=== PATIENT | male | born 1990 | race African-American/Black ===

== ENCOUNTER 2018-11-19 19:59 | Emergency (ER) | payer OTHER ==
[2018-11-19] MEDS ORDERED: ACETAMINOPHEN 325 MG TABLET PO ONE (20:36)
--- NOTE | 2018-11-19 20:38 | ER Document Report ---
ED Medical Screen (RME) - General Chief Complaint: Finger Injury Stated Complaint: LEFT HAND FINGER PAIN Time Seen by Provider: 11/19/18 20:32 Notes: Patient is a 28-year-old male with a chief complaint of left finger pain. Patient states on November 09 he was at work attempting to grab a luggage bag when he jammed his left pinky. Patient states it has been deformed since then. Patient reports he did not seek medical attention as he thought it would get better. Patient denies numbness or tingling to the finger. Patient states he is unable to stretch the finger out but when using the other hand he can manually straighten the finger with some discomfort. Patient denies significant swelling. Patient states he has not taken anything for pain for this. - Related Data Allergies/Adverse Reactions: No Known Allergies Allergy (Unverified 11/19/18 20:01) Physical Exam - Vital signs Vitals: Temp Pulse Resp BP Pulse Ox 98.7 F 61 18 150/74 H 94 11/19/18 20:09 11/19/18 20:09 11/19/18 20:09 11/19/18 20:09 11/19/18 20:09 - Extremities Notes: Deformity noted to the left fifth digit. There is no edema, ecchymosis. Patient has a less than 2-second cap refill and a strong left radial pulse. I am able to passively straighten the finger, patient is unable to perform active range of motion to the finger. Course - Re-evaluation Re-evalutation: 11/19/18 20:38 I have greeted and performed a rapid initial assessment of this patient. A comprehensive ED assessment and evaluation of the patient, analysis of test results and completion of the medical decision making process will be conducted by additional ED providers. - Vital Signs Vital signs: Temp Pulse Resp BP Pulse Ox 98.7 F 61 18 150/74 H 94 11/19/18 20:09 11/19/18 20:09 11/19/18 20:09 11/19/18 20:09 11/19/18 20:09
--- NOTE | 2018-11-19 20:48 | RADIOLOGY REPORT (SQ) ---
EXAM DESCRIPTION: Left 5th finger RadLex: XR FINGERS Views: 3 CLINICAL HISTORY: 28 years Male, bone tenderness COMPARISON: None. FINDINGS: The 5th PIP joint is held in flexion, nearly 90 degrees. No dislocation. The 5th DIP joint is hyperextended, approximately 55 degrees . Joint space is preserved. No acute fracture or bone fragments. No hyperdense foreign bodies. No lytic bone changes or acute periosteal reaction. IMPRESSION: 1. Hyperextension of the 5th DIP joint. There is no associated fracture, although an underlying tendon injury cannot be excluded.
[2018-11-19] MEDS ORDERED: LIDOCAINE 1% INJ-PF (10 MG/ML) 30 ML SDV ONE (21:02)
--- NOTE | 2018-11-19 21:48 | ER Document Report ---
HPI - HPI Time Seen by Provider: 11/19/18 20:32 Pain Level: 4 Context: Patient is a 28-year-old male who presents emergency department with a chief complaint of left 5th finger deformity. 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 He has not seen his primary care provider in regards to this issue. He is unable to completely extend his fifth digit on his own, but can manually straighten it with his other hand. He denies any pain. No past medical history. - ROS Systems Reviewed and Negative: Yes All other systems reviewed and negative - MUSCULOSKELETAL Notes: Left fifth finger deformity - DERM Skin Color: Normal Skin Problems: None Past Medical History - General Information source: Patient - Social History Smoking Status: Current Every Day Smoker Frequency of alcohol use: None Drug Abuse: None Family History: Reviewed & Not Pertinent Patient has suicidal ideation: No Patient has homicidal ideation: No Renal/ Medical History: Denies: Hx Peritoneal Dialysis Past Surgical History: Reports: Hx Oral Surgery - Beecher Teeth Vertical Provider Document - CONSTITUTIONAL Agree With Documented VS: Yes Exam Limitations: No Limitations General Appearance: No Apparent Distress - HEENT HEENT: Atraumatic, Normocephalic - NECK Neck: Normal Inspection - RESPIRATORY Respiratory: No Respiratory Distress - CARDIOVASCULAR Cardiovascular: Regular Rate Pulses: Normal: Radial - MUSCULOSKELETAL/EXTREMETIES Musculoskeletal/Extremeties: Non-Tender, No Edema. negative: FROM - Decreased range of motion to the left fifth digit., Tender, Eccymosis - NEURO Level of Consciousness: Awake, Alert, Appropriate Motor/Sensory: No Motor Deficit, No Sensory Deficit - DERM Integumentary: Warm, Dry, No Rash Course - Re-evaluation Re-evalutation: Obvious deformity on the patient's x-ray and physical exam. The patient will be placed in a finger splint at this time and he will follow-up with Dr. Bustos, the hand surgeon. Pain when I manually extended his digit. I instructed the patient on ibuprofen and Tylenol use. Patient did not have any follow-up precau tions were given. Verbal discharge instructions were given to the patient. They verbalized understanding. They are stable for discharge. - Vital Signs Vital signs: Temp Pulse Resp BP Pulse Ox 98.7 F 61 18 150/74 H 94 11/19/18 20:09 11/19/18 20:09 11/19/18 20:09 11/19/18 20:09 11/19/18 20:09 Procedures - Immobilization Left 5th digit Pre-Proc Neuro Vasc Exam: Normal Immobilizer type: Finger splint (Static) Performed by: PCT Post-Proc Neuro Vasc Exam: Normal, Unchanged from pre-exam Alignment checked and good: Yes Discharge - Discharge Clinical Impression: Dislocation of left little finger Qualifiers: Encounter type: initial encounter Qualified Code(s): S63.257A - Unspecified dislocation of left little finger, initial encounter Condition: Stable Disposition: HOME, SELF-CARE Additional Instructions: You were seen today in the emergency department for a dislocation of your left fifth finger. It was placed in a splint. Please follow-up with the hand surgeon below. Please keep your finger in a splint to help protect it and keep it in alignment. Referrals: [facility] [Primary Care Provider] - Follow up as needed BRIAN BUSTOS DO [ACTIVE STAFF] - Follow up in 1 week
[2018-11-19 21:56] VITALS: BP 140/78
== END 2018-11-19 21:56 | disposition home or self-care (01) ==
LOC: ER 19:59
PROC: 2W3KX1Z Immobilization of Left Finger using Splint (ICD-10-PCS; principal; 2018-11-19)
DX: S63.257A Unspecified dislocation of left little finger, initial encounter (principal); W22.8XXA Striking against or struck by other objects, initial encounter; F17.200 Nicotine dependence, unspecified, uncomplicated